=== PATIENT | male | born 1995 | race Caucasian/White ===

== ENCOUNTER → 2019-12-03 08:26 | Outpatient (CLI) | payer OTHER, SELFPAY ==
[2019-12-03 10:08] LABS: Cholesterol 215 mg/dL (140-199); Glucose Promotional 96 mg/dL (70-100); HDL Cholesterol 55 mg/dL (40-60); LDL Cholesterol Calculated 137 mg/dL (<100); Triglycerides 115 mg/dL (35-150)
[2019-12-03 10:19] LABS: PROMO Vitamin D 25 Hydroxy 44.6 ng/mL (30.0-100.0)
== END ==
PROVIDERS: Family Provider Family Medicine; PCP Internal Medicine Geriatric Medicine
DX: Z13.9 Encounter for screening, unspecified (principal)
CPT/HCPCS: 80061; 82306; 82947